=== PATIENT | female | born 1980 | race Caucasian/White ===

== ENCOUNTER → 2017-03-25 | Outpatient (CLI) | payer OTHER ==
[~2017-03-25] MED LIST: AIRBORNE GUMMI1 EACH PO; DROSPIRENONE PO; ETHINYL ESTRADIOL PO; MULTI FOR HER1 EACH PO
--- NOTE | ~2017-03-25 | ECHO ---
Transthoracic Echocardiography Report (TTE) Demographics Patient Name SANCHEZ MURGUIA Date of Study 03/25/2017 Patient Number [id number] Visit Number [id number] Date of 1980 Room Number Gender Female Number Age 36 year(s) Referring Tori Cheney MD Operations Manager Station Allie MARTELLT, RD Physician Merry Physician Interpreting Yoni Murray MD Glass Selector Physician Supervising Ordering Tori Cheney MD, MD/MLP Physician Nurse Stress Director Of Labor Relations Conclusions Contractility Score Summary Normal Left Ventricular contractility was noted. Summary The estimated left ventricular ejection fraction is 60-65%. Procedure Type of Study TTE procedure:2D Echocardiogram, M-Mode, Doppler , Color Doppler. Procedure Date Date: 03/25/2017 Start: 01:16 PM Study Location: Imaging Center Technical Quality: Adequate visualization Indications:Palpitations. Appropriate Use Criteria: 9 Patient Status: Routine HR: 82 bpm BP: 123/79 mmHg M-Mode/2D Measurements LV Diastolic Dimension: 4.79 cm LV Systolic Dimension: 2.71 cm LV Septum Diastolic: 0.78 cm LV PW Diastolic: 0.84 cm AO Root Dimension: 2.3 cm Cardiac Output: 5.83 l/min AV Cusp Separation: 1.5 cm RV Diastolic Dimension: 2.31 cm LA volume: 30 ml LVOT: 2.2 cm RV Base: 3.08 cm LVOT VTI: 18.7 cm RV Mid: 2.97 cm LV Stroke volume: 71.05 ml TAPSE: 2.04 cm TDI-S': 11.2 cm/s Doppler Measurements AV Peak Velocity: 1.2 m/s AV Peak Gradient: 5.76 mmHg AV Mean Gradient: 4 mmHg LVOT Peak Velocity: 1.04 m/s PV Peak Gradient: 2.57 mmHg TR Velocity:1.66 m/s Estimated PASP: 14.02 mmHg TR Gradient:11.02 mmHg Estimated RAP:3 mmHg Estimated RVSP: 14 mmHg Findings Left Ventricle Normal left ventricle size and function. Right Ventricle Normal right ventricle structure and function. Left Atrium Normal left atrial size. Right Atrium Normal right atrial size. Mitral Valve Trivial mitral regurgitation by color Doppler. Mild mitral prolapse noted Aortic Valve Normal aortic valve structure and function. Tricuspid Valve Trivial tricuspid regurgitation by color Doppler. Pulmonic Valve Normal pulmonic valve structure and function. Pericardial Effusion No evidence of pericardial effusion. Pleural Effusion No evidence of pleural effusion. Contractility Score LV regional wall motion:(0-Non visualized 1-Normal 2-Hypokinesis 3-Akinesis 4-Dyskinesis 5-Aneurysm) Signature dtt: Trevor Vallejo (cardio) dtd: 03/25/17 1316 Physician Self Edit
== END | disposition disaster alternative care site (69) ==
LOC: GCAR 12:51
DX: R00.2 Palpitations (principal)